=== PATIENT | female | born 1970 | race Asian ===

== ENCOUNTER 2017-10-01 13:31 | Day surgery (SDC) | payer BC ==
[~2017-10-01] VITALS: Ht 157.5 cm; Wt 89.4 kg
[2017-10-01] VITALS (8 sets, daily range): BP systolic 136–169; BP diastolic 50–107; PULSE 62–96; TEMP 97.8–98
[~2017-10-01 13:31] MED LIST: AMBIEN CR 12.12.5 MG PO; COLACE 100100 MG/CAP PO; DOXYCYCLINE HY100 MG PO; MELATONIN0.5 MG SL; PERCOCET 325 MG1 TA2 PO; TORADOL 10MG TA10 MG PO; ZOFRAN ODT4 MG PO; [UNRECOGNIZED DRUG - OTHER]
[2017-10-01] MEDS ORDERED: PERCOCET 325 MG1 TA2 PO (14:09)
[2017-10-01] MEDS ORDERED: ZOFRAN ODT4 MG PO (14:10)
[2017-10-01] MEDS ORDERED: DOXYCYCLINE 10100 MG PO (14:11)
[2017-10-01] MEDS ORDERED: STOOL SOFTENER100 M2 PO (14:12)
[2017-10-01] MEDS ORDERED: NORCO 325 MG-51 TAB PO (17:55)
[2017-10-01] MEDS ORDERED: COLACE 100100 MG/CAP PO (17:57)
[2017-10-01] MEDS ORDERED: PYRIDIUM 100MG100 MG PO (17:57)
== END 2017-10-01 19:10 | disposition home or self-care (01) ==
LOC: SDCO 13:31
DX: N13.2 Hydronephrosis with renal and ureteral calculous obstruction (principal); J40 Bronchitis, not specified as acute or chronic; I10 Essential (primary) hypertension; Z87.442 Personal history of urinary calculi; Z80.3 Family history of malignant neoplasm of breast; Z82.49 Family history of ischemic heart disease and other diseases of the circulatory system
CPT/HCPCS: C2617; J0690; J1100; J1885; J2270; J2405; J2550; J2704; J3010; J7120

== ENCOUNTER 2018-03-19 05:41 | Day surgery (SDC) | payer BC ==
[~2018-03-19] VITALS: Ht 160 cm; Wt 90.2 kg
[~2018-03-19 05:41] MED LIST changes: +DOXYCYCLINE 10100 MG PO; +NORCO 325 MG-51 TAB PO; +PYRIDIUM 100MG100 MG PO; +STOOL SOFTENER100 M2 PO
[2018-03-19 06:15] VITALS: BP 150/94; PULSE 82; TEMP 97.4
[2018-03-19] MEDS ORDERED: FLOMAX 0.40.4 MG/CAP (06:25)
[2018-03-19] MEDS ORDERED: LEVSIN0.125 M1 PO (06:26)
[2018-03-19] MEDS ORDERED: TORADOL 10MG TA10 MG PO (06:27)
[2018-03-19 09:15] VITALS: BP 129/78; PULSE 77; TEMP 98.1
[2018-03-19 09:30] VITALS: BP 137/73; PULSE 76
[2018-03-19 09:45] VITALS: BP 140/71; PULSE 91
[2018-03-19 10:00] VITALS: BP 133/76; PULSE 91
[2018-03-19 10:30] VITALS: BP 119/64; PULSE 82
== END 2018-03-19 11:02 | disposition home or self-care (01) ==
LOC: SDCO 05:41
DX: N20.2 Calculus of kidney with calculus of ureter (principal); Z87.442 Personal history of urinary calculi; Z80.3 Family history of malignant neoplasm of breast
CPT/HCPCS: J0690; J1100; J1885; J2405; J2704; J3010; J7120; Q9967